=== PATIENT | male | born 1960 | race Caucasian/White ===

== ENCOUNTER 2023-07-02 10:34 | Outpatient (CLI) | payer OTHER ==
[2023-07-02 13:26] LABS: Hematocrit 35.3 % (38.8-50.0); Hemoglobin 12.5 g/dL (13.5-17.5); Mean Corpuscular HGB CONC 35.4 g/dL (32.0-36.0); Mean Corpuscular Hemoglobin 33.2 pg (27.0-33.0); Mean Corpuscular Volume 93.9 fl (81.2-95.1); Mean Platelet Volume 10.8 fl (7.4-10.4); Platelet Count 141 10x3/uL (150-450); RBC Distribution Width 13.1 % (11.5-14.5); Red Blood Cell (RBC) Count 3.76 10x6/uL (4.32-5.72); White Blood Cell (WBC) Count 7.3 10x3/uL (3.5-10.5)
[2023-07-02 13:45] LABS: Anion Gap 16 mmol/L (10-20); BUN (Urea Nitrogen) 13 mg/dL (8.4-25.7); Calc. Creatinine Clearance 0 mL/min (70-130); Carbon Dioxide 20 mmol/L (23-31); Chloride 98 mmol/L (98-107); Estimated GFR 85; Glucose 91 mg/dL (80-115); Potassium 4.6 mmol/L (3.5-5.1); Sodium 129 mmol/L (136-145)
[2023-07-02 16:43] LABS: Hemoglobin A1c 5.4 % (4.0-6.0)
== END 2023-07-02 10:35 | disposition home or self-care (01) ==
LOC: CSHLAB 10:34
PROVIDERS: ATTEND Orthopaedic Surgery
DX: Z01.818 Encounter for other preprocedural examination (principal); M17.11 Unilateral primary osteoarthritis, right knee
CPT/HCPCS: 80048; 82306; 83036; 85027; 85610; 87081; 93005; 93010